=== PATIENT | male | born 1945 | race Caucasian/White ===

== ENCOUNTER 2016-10-31 04:49 | Day surgery (SDC) | payer MEDICARE, OTHER ==
[2016-10-25 17:48] LABS: HEMATOCRIT 45.3 % (40.0-51.0)
[2016-10-25 17:54] LABS: BUN (BLOOD UREA NITROGEN) 13 MG/DL (6-23); CALCIUM, SERUM 9.6 MG/DL (8.5-10.4); CHLORIDE, SERUM 109 MMOL/L (96-112); CO2 (CARBON DIOXIDE) 23 MMOL/L (24-34); GFR AFRICAN AMERICAN 78 ML/MIN (>=60); GFR NON AFRICAN AMERICAN 68 ML/MIN (>=60); GLUCOSE, SERUM 115 MG/DL (60-99); SODIUM, SERUM 144 MMOL/L (135-148)
[2016-10-25 17:55] LABS: POTASSIUM, SERUM 4.3 MMOL/L (3.5-5.3)
--- NOTE | ~2016-10-31 | OP ---
Record Of Operation [facility] [address] [place]. [address] NAME: AXEL BENOIT JR : 47 STATUS : REG [facility] PAT#: [id number] AGE: 71 ADM/REG DATE : 10/31/16 MR#: [id number] REPORT SERV DATE: 10/31/16 DICTATED BY: JOSE CALDWELL DATE: 10/31/16 REPORT STATUS : Draft TRANSCRIBED BY: MODL DATE: 10/31/16 DATE OF PROCEDURE: 10/31/2016 PREOPERATIVE DIAGNOSIS: Bilateral L4-L5 disc herniation and stenosis, lumbar radiculopathy. POSTOPERATIVE DIAGNOSIS: Bilateral L4-L5 disc herniation and stenosis, lumbar radiculopathy. PROCEDURE: Bilateral L4-L5 microdiscectomy, use of operative microscope, minimal access spine technology, and intraoperative O-arm CT scan with computer navigation with decompression of the bilateral L4 and L5 nerve roots. SURGEON: Jose Caldwell DO. ANESTHESIA: General. ESTIMATED BLOOD LOSS: 25 mL. COMPLICATIONS: None. INDICATIONS: The patient is a pleasant, 71-year-old, gentleman with intractable bilateral lower extremity pain, difficulty with ambulating. After failing conservative treatment and progressive worsening symptoms, he elected to undergo surgical intervention. PROCEDURE IN DETAIL: I identified the patient in the holding area. Consent was obtained. Went to the operating room. Underwent general anesthesia with endotracheal intubation. Prepped and draped in the usual sterile fashion. Operative safety pause was performed, and then we proceeded. The O-arm registration frame was placed in the iliac crest. O-arm was brought in for intraoperative CT scan. Computer registration materials were verified. Under computer guidance, a right longitudinal incision was made over the L4-L5 level, taken down the fascial layer. Tube dilators were used to minimally invasively dissect down to the L4-L5 interspace. Operative microscope was brought in. A high-speed bur was used to create a laminotomy, Go performed a foraminotomy. Free disc material removed with pituitary. The L4 and L5 nerve roots were free of compression at this point on the right side. This was repeated on the left side as well for thorough decompression. Irrigation performed. Hemostasis achieved. 40 mg Depo-Medrol injected over the nerves. Layered closure performed. Sterile dressings applied. The patient awoke and extubated, taken to recovery room in stable condition. OPERATIVE FINDINGS: L4-5 severe stenosis. PHUONG/LIZZETH Jose Caldwell, DO Record Of Operation [address] [address] NAME: AXEL BENOIT JR : 47 STATUS : REG [facility] PAT#: [id number] AGE: 71 ADM/REG DATE : 10/31/16 MR#: [id number] REPORT SERV DATE: 10/31/16 DICTATED BY: JOSE CALDWELL DATE: 10/31/16 REPORT STATUS : Draft TRANSCRIBED BY: LIZZETH DATE: 10/31/16 / [id number] CC: Jose Caldwell, DO Nelda Centeno
[~2016-10-31 04:49] MED LIST: ACIPHEX PO; ASAB PO; ATEN50 PO; CARDU2 PO; CELEBREX1 PO; CELEBREX2 PO; EXFORGE1 TA3 PO; MIRAPEX5 PO; MULTIPLE VIT PO; PLAVIX PO; PRAVACHOL40 MG PO; PROTONIX PO
== END 2016-10-31 16:08 | disposition home or self-care (01) ==
LOC: SDC 04:49
PROVIDERS: Orthopaedic Surgery
PROC: 01NB0ZZ Release Lumbar Nerve, Open Approach (ICD-10-PCS; 2016-10-31)
PROC: 0SB20ZZ Excision of Lumbar Vertebral Disc, Open Approach (ICD-10-PCS; principal; 2016-10-31 06:45)
DX: M51.16 Intervertebral disc disorders with radiculopathy, lumbar region (principal); M48.06 Spinal stenosis, lumbar region; E78.5 Hyperlipidemia, unspecified; G25.81 Restless legs syndrome; I10 Essential (primary) hypertension; Z86.73 Personal history of transient ischemic attack (TIA), and cerebral infarction without residual deficits; Z79.899 Other long term (current) drug therapy; Z96.653 Presence of artificial knee joint, bilateral; Z98.890 Other specified postprocedural states; Z87.442 Personal history of urinary calculi
CPT/HCPCS: 36415; 80048; 85014; 85018; 88304; 88311; 93005; 94640; A9270-GY; J0690; J1030; J2250; J2270; J2370; J2405; J2710; J3010